=== PATIENT | male | born 1975 | race Caucasian/White ===

== ENCOUNTER 2023-06-12 14:50 | Outpatient (CLI) | payer OTHER ==
--- NOTE | 2023-06-12 20:06 | XRAY Report ---
PROCEDURE: Hand 3 View BILAT INDICATIONS: BILATERAL CARPAL TUNNEL SYNDROME TECHNIQUE: 3 views of both hands acquired. COMPARISON: None. FINDINGS: Bones: No acute fractures or dislocations. No suspicious bony lesions. No osseous erosion is seen. Mild degenerative changes are seen at the 1st carpometacarpal joints bilaterally. Soft tissues: No nodular soft tissue swelling. Punctate radiodense foreign body is seen at the ulnar aspect of the left thumb. IMPRESSION: 1.Mild bilateral 1st carpometacarpal joint osteoarthrosis. No radiographic signs of an inflammatory a rthritis. 2.Tiny radiopaque foreign body in the subcutaneous tissues at the ulnar aspect of the left thumb. Reviewed by: Raymond Muñoz MD on 06/12/2023 8:05 PM PST Approved by: Raymond Muñoz MD on 06/12/2023 8:05 PM PST Station ID: [id number]
== END 2023-06-12 14:51 | disposition home or self-care (01) ==
LOC: DI 14:50
PROVIDERS: ATTEND Nurse Practitioner Family
DX: M18.0 Bilateral primary osteoarthritis of first carpometacarpal joints (principal); S60.352A Superficial foreign body of left thumb, initial encounter

== ENCOUNTER 2023-07-03 17:13 | Outpatient (CLI) | payer OTHER ==
--- NOTE | 2023-07-04 08:37 | Ultrasound Report ---
PROCEDURE: Pelvic Limited or F/U INDICATIONS: INGUINAL PAIN TECHNIQUE: Real-time transabdominal scanning was performed of the right inguinal region to assess for hernia, wi th image documentation. COMPARISON: None. FINDINGS: Right inguinal hernia containing bowel and fat with neck measuring 1.4 cm. The herniated contents madelyn sure approximately 4.2 x 3.0 cm. The hernia is reducible. IMPRESSION: Reducible fat-containing bowel containing right inguinal hernia. Reviewed by: Pablo Law MD on 07/04/2023 8:36 AM PST Approved by: Pablo Law MD on 07/04/2023 8:36 AM PST Station ID: [id number]
== END 2023-07-03 17:14 | disposition home or self-care (01) ==
LOC: DI 17:13
PROVIDERS: ATTEND Nurse Practitioner Family
DX: R10.2 Pelvic and perineal pain (principal); K40.90 Unilateral inguinal hernia, without obstruction or gangrene, not specified as recurrent

== ENCOUNTER 2023-08-21 08:26 | Day surgery (SDC) | payer OTHER ==
[~2023-08-21 08:26] MED LIST: ceFAZolin 2 GM VIAL ONE
[2023-08-21] MEDS ORDERED: LACTATED RINGERS 1,000 ML IV ONE (08:32)
[2023-08-21] MEDS ORDERED: LIDOCAINE-MPF 1% 30 ML VIAL ONE (08:46)
[2023-08-21] MEDS ORDERED: BUPIVACAINE 0.25% PF 30 ML VIAL ONE (08:46)
== END 2023-08-21 08:27 | disposition home or self-care (01) ==
LOC: SDS 08:26
PROVIDERS: ATTEND Surgery
DX: K40.90 Unilateral inguinal hernia, without obstruction or gangrene, not specified as recurrent (principal); Z53.09 Procedure and treatment not carried out because of other contraindication

== ENCOUNTER 2023-09-11 10:55 | Day surgery (SDC) | payer OTHER ==
[2023-09-11] MEDS ORDERED: ceFAZolin 2 GM VIAL ONE (11:01)
[2023-09-11] MEDS: LACTATED RINGERS 1,000 ML IV ONE ×2 (11:07→14:37)
--- NOTE | 2023-09-11 12:37 | ANESTHESIA ---
Pre-Anesthesia VS, & Labs - Diagnosis open right inginal hernia - Procedure right inginal hernia repair Vital Signs: Temp Pulse Resp BP Pulse Ox O2 Flow Rate 36.8 C 68 14 137/94 H 99 09/11/23 11:08 09/11/23 11:08 09/11/23 11:08 09/11/23 11:08 09/11/23 11:08 Height: 5 ft 9 in Weight (kg): 102.1 kg Body Mass Index: 33.2 BMI Classification: Obese - NPO >8 hours Home Medications and Allergies Cetirizine [ZyrTEC] 10 mg PO DAILY 08/14/23 Fluticasone [Flonase] 1 sprays REYNALDO DAILY 08/14/23 Ibuprofen [Motrin] 600 mg PO Q6H PRN 08/14/23 Allergies/Adverse Reactions: Allergies Allergy/AdvReac Type Severity Reaction Status Date / Time Anthrax vaccine Allergy Anaphylaxis Uncoded 09/11/23 11:31 Anes History & Medical History - Anesthetic History Anesthesia Complications: reports: No previous complications - Medical History Cardiovascular: reports: High cholesterol Pulmonary: reports: Sleep apnea, CPAP use Gastrointestinal: reports: None Urinary: reports: Kidney stones Musculoskeletal: reports: Osteoarthritis Endocrine/Autoimmune: reports: None Skin: reports: None History of Cancer?: No Exam General: Alert, Oriented x3 Dental: WNL Mouth Opening: Greater than 4 Fingerbreadths Neck Mobility: Normal Mallampati classification: I Thyromental Distance: greater than 6 cm Respiratory: Lungs clear Cardiovascular: Regular rate, Normal S1, Normal S2 Plan Anesthesia Type: General Consent for Procedure(s) Verified and Reviewed: Yes Code Status: Attempt Resuscitation ASA classification: 2-Mild systemic disease Is this case an emergency?: No
[2023-09-11] MEDS ORDERED: ATROPINE ABBOJECT 1 MG/10 ML SYRINGE IVP PRN (12:41)
[2023-09-11] MEDS ORDERED: MORPHINE 2 MG/ML CARPUJECT IVP PRN (12:41)
[2023-09-11] MEDS ORDERED: ONDANSETRON 4 MG/2 ML VIAL IVP PRN ×2 (12:41→14:41)
[2023-09-11] MEDS ORDERED: HYDROmorphone 0.5 MG/0.5 ML SYRINGE IVP PRN ×2 (12:41→14:41)
[2023-09-11] MEDS ORDERED: NALOXONE 0.4 MG/ML VIAL IVP PRN (12:41)
[2023-09-11] MEDS ORDERED: fentaNYL 100 MCG/2 ML VIAL IVP PRN (12:41)
[2023-09-11] MEDS ORDERED: METOCLOPRAMIDE 10 MG/2 ML VIAL IVP PRN (12:41)
[2023-09-11] MEDS ORDERED: ePHEDrine 50 MG/ML VIAL IVP PRN (12:41)
--- NOTE | 2023-09-11 12:59 | HISTORY & PHYSICAL EXAMINATION ---
Chief Complaint - Chief Complaint Chief Complaint: right groin bulge History of Present Illness - History Obtained From Records Reviewed: yes History obtained from: pt Exam Limitations: none - History of Present Illness HPI Comment/Other: right inguinal hernia, symptomatic History - Past Medical History Cardiovascular: reports: High cholesterol Respiratory: reports: Sleep apnea, CPAP use Endocrine/Autoimmune: reports: None GI: reports: None : reports: Kidney stones HEENT: reports: Chronic vision loss, Chronic sinusitis Psych: reports: None Musculoskeletal: reports: Osteoarthritis Derm: reports: None MRSA Hx?: No Meds/Allgy - Home Medications Home Medications: Ambulatory Orders Medication Instructions Recorded Confirmed Cetirizine [ZyrTEC] 10 mg PO DAILY 08/14/23 09/08/23 Fluticasone [Flonase] 1 sprays REYNALDO DAILY 08/14/23 09/08/23 Ibuprofen [Motrin] 600 mg PO Q6H PRN 08/14/23 09/08/23 - Allergies Allergies/Adverse Reactions: Allergies Allergy/AdvReac Type Severity Reaction Status Date / Time Anthrax vaccine Allergy Anaphylaxis Uncoded 09/11/23 11:31 Review of Systems - Other Findings Other Findings: 10 pt ros as above otherwise unremarkable Exam - Vital Signs Vital Signs: Vital Signs x48h Temp Pulse Resp BP Pulse Ox 09/11/23 11:08 36.8 C 68 14 137/94 H 99 - Physical Exam General Appearance: positive: No acute distress, Alert Eyes Bilateral: positive: PERRL, EOMI Neck: positive: No JVD, Trachea midline Respiratory: positive: Breath sounds nml Cardiovascular: positive: Regular rate & rhythm Abdomen: positive: Other (right inguinal hernia present) Neurologic/Psychiatric: positive: Oriented x3 Conclusion/Plan - Problem List (1) Inguinal hernia Conclusion/Plan: plan open repair with mesh. parq held and consent obtained
[2023-09-11] MEDS ORDERED: LACTATED RINGERS 1,000 ML IV SCH (13:00)
[2023-09-11] MEDS ORDERED: MIDAZOLAM 2 MG/2 ML VIAL ONE (13:05)
[2023-09-11] MEDS ORDERED: fentaNYL 100 MCG/2 ML VIAL ONE (13:05)
[2023-09-11] MEDS ORDERED: PROPOFOL 200 MG/20 ML VIAL IVP ONE ×2 (13:07→14:18)
[2023-09-11] MEDS ORDERED: LIDOCAINE-PF 2% 10 ML AMP SUBQ ONE (13:07)
[2023-09-11] MEDS ORDERED: BUPIVACAINE 0.25% PF 30 ML VIAL ONE (13:16)
[2023-09-11] MEDS ORDERED: DEXAMETHASONE 4 MG/ML VIAL ONE (13:36)
[2023-09-11] MEDS ORDERED: ONDANSETRON 4 MG/2 ML VIAL ONE (13:36)
[2023-09-11] MEDS: BUPIVACAINE 0.25% PF 30 ML VIAL SUBQ ONE (13:46)
--- NOTE | 2023-09-11 14:58 | OPERATIVE REPORT ---
Operative Report - General Procedure Date: 09/11/23 Planned Procedure: open right inguinal hernia repair with mesh Pre-Op Diagnosis: right inguinal hernia Procedure Performed: open right inguinal hernia repair with mesh Post Op Diagnosis: same - Procedure Note Primary Surgeon: thanh horn Anesthesia Technique: General LMA, Local Pathology: not sent Estimated Blood Loss (mL): 2 Drain/Tube Type: Other (none) Indications: painful hernia Findings: direct varicocele present Complications: none - Other Other Information/Narrative: Patient was properly identified brought to the operating room and placed in supine position. Sequential compression devices were placed. General anesthesia was induced. He was prepped and draped in a sterile fashion and given preoperative antibiotics. Local anesthetic was given throughout the procedure. A 5 cm incision was made in the direction of Nadya's lines just cephalad of the pubic tubercle. Dissection proceeded with cutting current cautery. The superficial epigastric vein was identified clamped divided and tied with 3-0 Vicryl. Dissection proceeded down to the aponeurosis. The aponeurosis was opened in the direction of its fibers and extended to the external ring. Cord structures were mobilized and brought up. The nerves were carefully protected and preserved. Cord structures were mobilized and brought up. A large direct hernia was identified. The direct bulge was mobilized away from surrounding structures. It was reduced and floor repaired with a 2-0 silk pursestring suture. There was no indirect inguinal hernia. Preperitoneal fat was removed. The base was tied with 2 O vicryl. Polypropylene mesh was cut to size and with tails. The mesh was secured with multiple interrupted 0 Ethibond sutures. She was placed along the pubic tubercle, Josh's ligament area and along the shelving border of Poupart's ligament. Sutures were placed medially along the abdominal wall musculature and internal oblique. The medial tail of the mesh was secured to the shelving border of Poupart's ligament with 3 interrupted 0 ethibond sutures recreating the internal ring of appropriate size. An additional suture was placed in the crotch of the mesh recreating an internal ring of appropriate size. Aponeurosis was closed with a running 2-0 Vicryl suture. The opposite was closed with interrupted 3-0 Vicryl suture. Buried interrupted subdermal 3-0 Vicryl sutures were then placed. And was closed with a running 4-0 Monocryl subcuticular suture. Dressing was applied. Patient was awakened and brought to recovery in good condition.
[2023-09-11] MEDS ORDERED: HYDROcod/ACETAM 5/325 MG TABLET ONE (15:31)
[2023-09-11] MEDS: HYDROcod/ACETAM 5/325 MG TABLET PO PRN (15:32)
[2023-09-11 15:44] VITALS: BP 135/96; O2SAT 99
--- NOTE | 2023-09-11 16:42 | ANESTHESIA POST OP EVALUATION ---
Anesthesia Post Eval - Post Anesthesia Eval Vitals: Last Vital Signs Temp 36.2 C L 09/11/23 15:15 Pulse 63 09/11/23 15:36 Resp 16 09/11/23 15:36 BP 135/96 H 09/11/23 15:36 Pulse Ox 99 09/11/23 15:36 O2 Flow Rate CV Function Including HR & BP: Stable Pain Control: Satisfactory Nausea & Vomiting: Negative Mental Status: Baseline Respiratory Status: Airway Patent Hydration Status: Satisfactory Anesthesia Complications: None
== END 2023-09-11 10:56 | disposition home or self-care (01) ==
LOC: SDS 10:55
PROVIDERS: ATTEND Surgery
DX: K40.90 Unilateral inguinal hernia, without obstruction or gangrene, not specified as recurrent (principal); G47.30 Sleep apnea, unspecified; E78.00 Pure hypercholesterolemia, unspecified
CPT/HCPCS: 49505; A9270; C1781; J7120